=== PATIENT | female | born 1965 | race Caucasian/White ===

== ENCOUNTER 2020-07-19 11:47 | Day surgery (SDC) | payer MEDICAID ==
[~2020-07-19] VITALS: Ht 170.2 cm; Wt 86.4 kg
[~2020-07-19 11:47] MED LIST: SODIUM CHLORIDE 0.9% 1,000 ML IV ONE; SODIUM CHLORIDE 0.9% 1,000 ML ONE
[2020-07-19] MEDS ORDERED: PROPOFOL 1% 20 ML VIAL IVP ONE (12:00)
[2020-07-19] MEDS ORDERED: LIDOCAINE/PF 2% 5 ML VIAL INJ ONE (12:00)
[2020-07-19] MEDS ORDERED: DAPA5TAB PO (13:29)
[2020-07-19] MEDS ORDERED: OLME20TA10 PO (13:29)
[2020-07-19] MEDS ORDERED: METF-446 PO (13:29)
[2020-07-19 13:40] LABS: GLUCOMETER DEV NAME(LOC) SDS.; GLUCOSE,POINT OF CARE 113 MG/DL (70-110)
== END 2020-07-19 15:45 | disposition home or self-care (01) ==
LOC: SURGERY 11:47
PROVIDERS: ATTEND Internal Medicine Gastroenterology
DX: R19.5 Other fecal abnormalities (principal); K64.8 Other hemorrhoids; K29.70 Gastritis, unspecified, without bleeding; I10 Essential (primary) hypertension; E78.5 Hyperlipidemia, unspecified; E11.9 Type 2 diabetes mellitus without complications; Z90.710 Acquired absence of both cervix and uterus; Z79.899 Other long term (current) drug therapy
CPT/HCPCS: 45378; 43239; 82962; 87426; C1769; J2704; J3490; J7030; 88305; 88312; 88313